=== PATIENT | male | born 1975 | race Two or more races ===

== ENCOUNTER 2017-12-02 10:06 | Inpatient (IN) | payer BC ==
[2017-12-02] MEDS ORDERED: 0.9 % SODIUM CHLORIDE 10 ML DISP.SYRIN. IV (10:15)
[2017-12-02] MEDS: IV NORMAL SALINE 1000ML BAG 1,000 ML IV ×2 (10:43→16:00)
[2017-12-02] MEDS: methylPREDNISolone SOD SUCC PF 125 MG/2 ML VIAL. IV (10:43)
[2017-12-02] MEDS: ONDANSETRON PF 4 MG/2 ML VIAL. IV (10:44)
[2017-12-02] MEDS: FAMOTIDINE 20 MG/2 ML VIAL IVP (10:45)
[2017-12-02 10:56] LABS: ADD MAN DIFF? NO
[2017-12-02 11:04] LABS: BASO % 0 % (0-3); EOS # 0.1 x10^3/uL (0.0-0.7); EOS % 1 % (0-3); HEMATOCRIT 57.4 % (39.0-53.0); HEMOGLOBIN 19.5 g/dL (13.0-17.5); LYMPH # 2.8 x10^3/uL (1.0-4.8); LYMPH % 25 % (24-48); MEAN CORPUSCULAR HEMOGLOBIN 30 pg (25-35); MEAN CORPUSCULAR HGB CONC 34 g/dL (31-37); MEAN CORPUSCULAR VOLUME 88 fL (79-100); MONO # 0.6 x10^3/uL (0.0-1.1); MONO % 6 % (0-9); NEUT % 69 % (31-73); PLATELET COUNT 327 x10^3/uL (140-400); RED BLOOD COUNT 6.53 x10^6/uL (4.30-5.70); WHITE BLOOD COUNT 11.5 x10^3/uL (4.0-11.0)
[2017-12-02 11:08] LABS: ANION GAP 15 (6-14); BLOOD UREA NITROGEN 14 mg/dL (8-26); BUN/CREATININE RATIO 13 (6-20); CALCIUM 9.5 mg/dL (8.5-10.1); CARBON DIOXIDE 23 mmol/L (21-32); CHLORIDE 103 mmol/L (98-107); CREATININE 1.1 mg/dL (0.7-1.3); GFR 73.8; GLUCOSE 143 mg/dL (70-99); POTASSIUM 4.2 mmol/L (3.5-5.1); SODIUM 141 mmol/L (136-145)
[2017-12-02 11:16] LABS: ALBUMIN 4.4 g/dL (3.4-5.0); ALBUMIN/GLOBULIN RATIO 1.4 (1.0-1.7); ALK PHOS 92 U/L (46-116); ALT (SGPT) 87 U/L (16-63); AST (SGOT) 37 U/L (15-37); DIRECT BILIRUBIN 0.1 mg/dL (0.0-0.2); LIPASE 174 U/L (73-393); MAGNESIUM 2.1 mg/dL (1.8-2.4); TOTAL BILIRUBIN 1.2 mg/dL (0.2-1.0); TOTAL PROTEIN 7.6 g/dL (6.4-8.2)
[2017-12-02 11:20] LABS: TROPONINI < 0.017 ng/mL (0.000-0.055)
[2017-12-02 11:26] LABS: BILIRUBIN,URINE NEGATIVE (NEG); CLARITY,URINE CLEAR; COLOR,URINE AMBER; GLUCOSE,URINE NEGATIVE (NEG); NITRITE,URINE NEGATIVE (NEG); PROTEIN,URINE 100 mg/dL (NEG-TRACE)
[2017-12-02] MEDS ORDERED: ACETAMINOPHEN 325 MG TABLET. PO (11:30)
[2017-12-02] MEDS ORDERED: ONDANSETRON PF 4 MG/2 ML VIAL. IV (11:30)
[2017-12-02] MEDS ORDERED: MORPHINE SULFATE 4 MG/ML DISP.SYRIN. IV (11:30)
[2017-12-02 11:31] LABS: BARBITURATES NEG (NEG); BENZODIAZEPINES NEG (NEG); CANNABINOIDS NEG (NEG); COCAINE NEG (NEG); METHADONE NEG (NEG); OPIATES NEG (NEG); PHENCYCLIDINE NEG (NEG)
[2017-12-02 11:32] LABS: NT-PRO BNP 7 pg/mL (0-124)
[2017-12-02 11:32] LABS: CKMB INDEX 0.6 % (0-4); CKMB MASS 0.6 ng/mL (0.0-3.6); CREATINE KINASE 103 U/L (39-308)
[2017-12-02 11:33] LABS: AMPHETAMINE/METHAMPHETAMINE NEG (NEG); ETHANOL, URINE NEG (NEG)
[2017-12-02 11:38] LABS: BACTERIA,URINE 0 /HPF (0-FEW); WBC,URINE 0 /HPF (0-4)
[2017-12-02 11:39] LABS: THYROID STIM HORMONE (TSH) 1.871 uIU/mL (0.358-3.74)
[2017-12-02] MEDS ORDERED: IOHEXOL 300 MG/ML 100ML VIAL. IV (12:45)
[2017-12-02] MEDS ORDERED: CONTRAST GIVEN MC (13:00)
[2017-12-02] MEDS: FAMOTIDINE 20 MG TABLET. PO (22:30)
[2017-12-03] MEDS: IV NORMAL SALINE 1000ML BAG 1,000 ML IV ×2 (00:23→08:46)
[2017-12-03] MEDS ORDERED: NON FORMULARY ITEM (Melatonin 1 TAB) PO (08:00)
[2017-12-03] MEDS ORDERED: ONDANSETRON PF 4 MG/2 ML VIAL. IV (08:00)
[2017-12-03] MEDS ORDERED: diphenhydrAMINE HCL 25 MG CAPSULE PO (08:00)
[2017-12-03] MEDS: LISINOPRIL 10 MG TABLET PO (08:47)
[2017-12-03] MEDS: hydroCHLOROthiazide 12.5 MG CAPSULE PO (08:47)
[2017-12-03 09:32] LABS: BASO # 0.1 x10^3/uL (0.0-0.2); BASO % 0 % (0-3); EOS % 0 % (0-3); HEMOGLOBIN 17.1 g/dL (13.0-17.5); LYMPH # 2.1 x10^3/uL (1.0-4.8); LYMPH % 10 % (24-48); MEAN CORPUSCULAR HEMOGLOBIN 29 pg (25-35); MEAN CORPUSCULAR HGB CONC 33 g/dL (31-37); MEAN CORPUSCULAR VOLUME 89 fL (79-100); MONO # 1.2 x10^3/uL (0.0-1.1); MONO % 6 % (0-9); NEUT # 17.4 x10^3uL (1.8-7.7); NEUT % 84 % (31-73); PLATELET COUNT 277 x10^3/uL (140-400); RED BLOOD COUNT 5.84 x10^6/uL (4.30-5.70); RED CELL DISTRIBUTION WIDTH 12.9 % (11.5-14.5); WHITE BLOOD COUNT 20.8 x10^3/uL (4.0-11.0)
[2017-12-03 09:35] LABS: ADD MAN DIFF? YES
[2017-12-03 09:37] LABS: ANION GAP 8 (6-14); BLOOD UREA NITROGEN 14 mg/dL (8-26); CALCIUM 8.6 mg/dL (8.5-10.1); CARBON DIOXIDE 27 mmol/L (21-32); CHLORIDE 105 mmol/L (98-107); GFR 82.3; GLUCOSE 143 mg/dL (70-99); POTASSIUM 3.9 mmol/L (3.5-5.1); SODIUM 140 mmol/L (136-145)
[2017-12-03 10:54] LABS: % LYMPHS 12 % (24-48); % MONOS 3 % (0-10); % SEGS 85 % (35-66)
[2017-12-03 10:55] LABS: PLT ESTIMATE ADEQUATE (ADEQUATE)
[2017-12-03] MEDS ORDERED: ATORVASTATIN CALCIUM 10 MG TABLET. PO (21:00)
== END 2017-12-03 12:39 | disposition home or self-care (01) | DRG 842 ==
LOC: ER 10:06 → 5 SOUTH 11:30
DX: D45 Polycythemia vera (principal); E86.0 Dehydration; T78.40XA Allergy, unspecified, initial encounter; F17.210 Nicotine dependence, cigarettes, uncomplicated; F41.9 Anxiety disorder, unspecified; G47.00 Insomnia, unspecified; Z83.3 Family history of diabetes mellitus; R55 Syncope and collapse; Z88.8 Allergy status to other drugs, medicaments and biological substances; Z91.041 Radiographic dye allergy status; Z91.013 Allergy to seafood; Z91.018 Allergy to other foods
CPT/HCPCS: 36415; 71046; 71275; 74174; 80048; 80053; 80076; 80307; 81001; 82553; 83690; 83735; 83880; 84443; 84484; 85007; 85025; 93005; 96374; 96375; 99291; 99291-25; J2060; J2405; J2930; J7030; S0028